=== PATIENT | male | born 1990 | race Caucasian/White ===

== ENCOUNTER 2017-05-19 16:46 | Emergency (ER) | payer OTHER ==
[~2017-05-19] VITALS: Ht 185.4 cm; Wt 77.1 kg
[~2017-05-19 16:46] MED LIST: ALBU90OI; ALBU90OI6 INH; AMOX500 PO; CIPR250 PO; CODACE30 PO; CYCL10 PO; HYDACE5 PO; HYDACE5325 PO; IBUP600 PO; IBUP800 PO; KETO10 PO; MUSCLE RELAXER; NAPR550 PO; OXYACE5T PO; OXYACE7.5T PO; PROM25 PO; RXNAPNA550 PO; RXOXYACE PO; TAMS.4ER PO; TRAM50 PO; [UNRECOGNIZED DRUG - REMARK]
[2017-05-19] MEDS ORDERED: Robaxin500 MG PO (17:20)
[2017-05-19] MEDS ORDERED: [UNRECOGNIZED DRUG - OTHER] (17:39)
[2017-12-04] MEDS ORDERED: Vibramycin100 MG PO (07:14)
[2017-12-04] MEDS ORDERED: Norco 5-325 Ta1 EACH PO (07:14)
== END 2017-05-19 17:42 | disposition home or self-care (01) ==
LOC: ER 16:46
DX: M54.5 Low back pain (principal); Z88.0 Allergy status to penicillin; J45.909 Unspecified asthma, uncomplicated; Z87.442 Personal history of urinary calculi
CPT/HCPCS: 96372; 99283; J1885

== ENCOUNTER 2017-05-25 10:47 | Emergency (ER) | payer OTHER ==
[~2017-05-25] VITALS: Ht 182.9 cm; Wt 78.0 kg
[~2017-05-25 10:47] MED LIST changes: +Robaxin500 MG PO; +[UNRECOGNIZED DRUG - OTHER]
[2017-05-25] MEDS ORDERED: CLON.5 PO (11:12)
[2017-05-25] MEDS ORDERED: CYCL10 PO (11:33)
[2017-12-04] MEDS ORDERED: Vibramycin100 MG PO (07:14)
[2017-12-04] MEDS ORDERED: Norco 5-325 Ta1 EACH PO (07:14)
== END 2017-05-25 11:40 | disposition home or self-care (01) ==
LOC: ER 10:47
DX: M54.6 Pain in thoracic spine (principal); Z88.0 Allergy status to penicillin; Z79.899 Other long term (current) drug therapy; J45.909 Unspecified asthma, uncomplicated; F17.290 Nicotine dependence, other tobacco product, uncomplicated
CPT/HCPCS: 99282

== ENCOUNTER → 2017-10-19 | Outpatient (CLI) | payer OTHER ==
[~2017-10-19] MED LIST changes: +CLON.5 PO
[2017-10-19 12:18] LABS: BASOPHILS ABSOLUTE AUTO 0.03 K/mm3 (0.00-0.23); BASOPHILS PERCENT AUTO 1 % (0-2); EOSINOPHILS ABSOLUTE AUTO 0.04 K/mm3 (0.00-0.68); EOSINOPHILS PERCENT AUTO 1 % (0-6); Hematocrit 45.3 % (37.0-53.0); Hemoglobin 16.2 g/dL (13.5-17.5); IMMATURE GRAN ABSOLUTE AUTO 0.01 K/mm3 (0.00-0.10); IMMATURE GRAN PERCENT AUTO 0 % (0-1); LYMPHOCYTES ABSOLUTE AUTO 2.09 K/mm3 (0.84-5.20); LYMPHOCYTES PERCENT AUTO 34 % (21-46); MONOCYTES ABSOLUTE AUTO 0.45 K/mm3 (0.16-1.47); MONOCYTES PERCENT AUTO 7 % (4-13); Mean Corpuscular HGB Conc 35.8 g/dL (31.5-36.5); Mean Corpuscular Volume 90 fL (80-100); Mean Platelet Volume 10.4 fL (9.1-12.4); NEUTROPHILS ABSOLUTE AUTO 3.58 K/mm3 (1.96-9.15); NEUTROPHILS PERCENT AUTO 58 % (41-73); Platelet Count 201 K/mm3 (150-400); RDW Coefficient Variation 11.9 % (11.7-14.2); RDW Standard Deviation 38.9 fL (35.1-46.3); Red Blood Cell Count 5.06 M/mm3 (4.30-5.90)
== END | disposition home or self-care (01) ==
LOC: LAB EV 12:12 → LAB SHORT 12:12
PROVIDERS: Physician Assistant
DX: R10.31 Right lower quadrant pain (principal)
CPT/HCPCS: 85025

== ENCOUNTER 2017-10-24 12:30 | Emergency (ER) | payer MEDICAID ==
[~2017-10-24] VITALS: Ht 182.9 cm; Wt 81.7 kg
[2017-10-24 13:51] LABS: BASOPHILS ABSOLUTE AUTO 0.03 K/mm3 (0.00-0.23); BASOPHILS PERCENT AUTO 1 % (0-2); EOSINOPHILS ABSOLUTE AUTO 0.08 K/mm3 (0.00-0.68); EOSINOPHILS PERCENT AUTO 2 % (0-6); Hematocrit 47.3 % (37.0-53.0); IMMATURE GRAN ABSOLUTE AUTO 0.01 K/mm3 (0.00-0.10); IMMATURE GRAN PERCENT AUTO 0 % (0-1); LYMPHOCYTES ABSOLUTE AUTO 2.31 K/mm3 (0.84-5.20); LYMPHOCYTES PERCENT AUTO 43 % (21-46); MONOCYTES ABSOLUTE AUTO 0.48 K/mm3 (0.16-1.47); MONOCYTES PERCENT AUTO 9 % (4-13); Mean Corpuscular HGB Conc 35.9 g/dL (31.5-36.5); Mean Corpuscular Volume 89 fL (80-100); Mean Platelet Volume 10.4 fL (9.1-12.4); NEUTROPHILS ABSOLUTE AUTO 2.46 K/mm3 (1.96-9.15); NEUTROPHILS PERCENT AUTO 46 % (41-73); Platelet Count 216 K/mm3 (150-400); RDW Coefficient Variation 11.8 % (11.7-14.2); RDW Standard Deviation 37.9 fL (35.1-46.3); Red Blood Cell Count 5.32 M/mm3 (4.30-5.90); White Blood Cell Count 5.37 K/mm3 (4.00-11.30)
[2017-10-24 14:06] LABS: Alanine Aminotransfer (ALT/SGP 26 U/L (12-78); Albumin, Blood 4.4 g/dL (3.4-5.0); Albumin/Globulin Ratio 1.5 (0.8-1.8); Alk Phos 87 U/L (50-136); Anion Gap 8 mmol/L (6-16); Aspartate Aminotrans (AST/SGOT 22 U/L (12-37); Bilirubin, Total 0.9 mg/dL (0.1-1.0); Blood Urea Nitrogen 9 mg/dL (8-24); Bun/Creatinine Ratio 8.2 (12.0-20.0); CO2, Blood 25 mmol/L (21-32); Calcium, Blood 9.3 mg/dL (8.5-10.1); Chloride, Blood 107 mmol/L (98-108); Globulin, Blood 2.9 g/dL (2.2-4.0); Glomerular Filtration Rate >60 (60-); Glucose, Blood 92 mg/dL (70-99); Potassium, Blood 4.2 mmol/L (3.5-5.5); Sodium, Blood 140 mmol/L (136-145); Total Protein, Blood 7.3 g/dL (6.4-8.2)
[2017-10-24 14:39] LABS: Source, Urine Clean Catch
[2017-10-24 14:47] LABS: Bilirubin, Urine Neg (Neg); Blood, Urine Neg (Neg); Glucose Qualitative, Urine Neg (Neg); Ketones, Urine Neg (Neg); Leukocyte Esterase, Urine Neg (Neg); Nitrite, Urine Neg (Neg); Protein, Urine Neg (Neg); Urobilinogen, Urine NORM (Normal)
[2017-10-24 14:58] LABS: Appearance, Urine Clear (Clear); Color, Urine Yellow (P-Yellow)
[2017-10-24] MEDS ORDERED: IBUP400 PO (16:10)
== END 2017-10-24 16:27 | disposition home or self-care (01) ==
LOC: ER 12:30
PROVIDERS: Emergency Medicine
DX: R10.84 Generalized abdominal pain (principal); F17.290 Nicotine dependence, other tobacco product, uncomplicated; Z88.0 Allergy status to penicillin; Z87.442 Personal history of urinary calculi
CPT/HCPCS: 36415; 76857; 80053; 81003; 82947; 83690; 85025; 96360; 99284-25; J7120

== ENCOUNTER 2017-12-06 09:29 | Emergency (ER) | payer OTHER ==
[~2017-12-06] VITALS: Ht 185.4 cm; Wt 79.4 kg
[~2017-12-06 09:29] MED LIST changes: +IBUP400 PO; +Norco 5-325 Ta1 EACH PO; +Vibramycin100 MG PO
[2017-12-06 11:01] LABS: BASOPHILS ABSOLUTE AUTO 0.04 K/mm3 (0.00-0.23); BASOPHILS PERCENT AUTO 1 % (0-2); EOSINOPHILS ABSOLUTE AUTO 0.09 K/mm3 (0.00-0.68); EOSINOPHILS PERCENT AUTO 1 % (0-6); Hemoglobin 16.2 g/dL (13.5-17.5); IMMATURE GRAN ABSOLUTE AUTO 0.01 K/mm3 (0.00-0.10); IMMATURE GRAN PERCENT AUTO 0 % (0-1); LYMPHOCYTES ABSOLUTE AUTO 2.36 K/mm3 (0.84-5.20); LYMPHOCYTES PERCENT AUTO 38 % (21-46); MONOCYTES ABSOLUTE AUTO 0.43 K/mm3 (0.16-1.47); MONOCYTES PERCENT AUTO 7 % (4-13); Mean Corpuscular Volume 89 fL (80-100); Mean Platelet Volume 10.7 fL (9.1-12.4); NEUTROPHILS ABSOLUTE AUTO 3.32 K/mm3 (1.96-9.15); NEUTROPHILS PERCENT AUTO 53 % (41-73); Platelet Count 211 K/mm3 (150-400); RDW Coefficient Variation 11.4 % (11.7-14.2); RDW Standard Deviation 36.2 fL (35.1-46.3); Red Blood Cell Count 5.07 M/mm3 (4.30-5.90); White Blood Cell Count 6.25 K/mm3 (4.00-11.30)
[2017-12-06 11:14] LABS: Source, Urine Clean Catch
[2017-12-06 11:18] LABS: Anion Gap 7 mmol/L (6-16); Blood Urea Nitrogen 16 mg/dL (8-24); Bun/Creatinine Ratio 11.3 (12.0-20.0); CO2, Blood 26 mmol/L (21-32); Calcium, Blood 9.3 mg/dL (8.5-10.1); Chloride, Blood 110 mmol/L (98-108); Creatinine, Blood 1.42 mg/dL (0.60-1.20); Glomerular Filtration Rate >60 (60-); Glucose, Blood 94 mg/dL (70-99); Sodium, Blood 143 mmol/L (136-145)
[2017-12-06 11:27] LABS: Bilirubin, Urine Neg (Neg); Blood, Urine Neg (Neg); Glucose Qualitative, Urine Neg (Neg); Ketones, Urine Neg (Neg); Leukocyte Esterase, Urine Neg (Neg); Nitrite, Urine Neg (Neg); Protein, Urine Neg (Neg); Specific Gravity, Urine 1.005 (1.003-1.022); Urobilinogen, Urine NORM (Normal)
[2017-12-06 11:43] LABS: Appearance, Urine Clear (Clear); Color, Urine Yellow (P-Yellow)
[2017-12-06] MEDS ORDERED: Cipro500 MG PO (12:11)
[2017-12-06] MEDS ORDERED: Norco 5-325 Ta1 EACH PO (12:11)
[2017-12-07 23:10] LABS: CHLAMYDIA TRACHOMATIS, NAA Negative (Negative); NEISSERIA GONORRHOEAE, NAA Negative (Negative)
== END 2017-12-06 12:31 | disposition home or self-care (01) ==
LOC: ER 09:29
PROVIDERS: Physician Assistant
DX: N45.1 Epididymitis (principal); N17.9 Acute kidney failure, unspecified; Z87.442 Personal history of urinary calculi; Z87.891 Personal history of nicotine dependence; Z79.891 Long term (current) use of opiate analgesic; Z79.899 Other long term (current) drug therapy; Z88.0 Allergy status to penicillin
CPT/HCPCS: 36415; 80048; 81003; 85025; 87491; 87591; 96361; 96374; 99283-25; J3010; J7030

== ENCOUNTER 2017-12-22 03:42 | Emergency (ER) | payer OTHER ==
[~2017-12-22] VITALS: Ht 210.8 cm; Wt 81.7 kg
[~2017-12-22 03:42] MED LIST changes: +Cipro500 MG PO
[2017-12-22] MEDS ORDERED: Silvadene20 GM TOP (05:48)
[2017-12-22] MEDS ORDERED: Norco 10-325 T1 EACH PO (05:48)
== END 2017-12-22 06:15 | disposition home or self-care (01) ==
LOC: ER 03:42
DX: T21.01XA Burn of unspecified degree of chest wall, initial encounter (principal); T22.032A Burn of unspecified degree of left upper arm, initial encounter; T22.031A Burn of unspecified degree of right upper arm, initial encounter; Z23 Encounter for immunization; X11.8XXA Contact with other hot tap-water, initial encounter; Z88.0 Allergy status to penicillin; Z87.891 Personal history of nicotine dependence
CPT/HCPCS: 90714; J1170; J2405

== ENCOUNTER 2020-09-06 07:36 | Day surgery (SDC) | payer OTHER ==
[~2020-09-06] VITALS: Ht 185.4 cm; Wt 91.1 kg
[~2020-09-06 07:36] MED LIST changes: +BIOTIN1 MG PO; +DOXY100 PO; +Norco 10-325 T1 EACH PO; +SULTRIDS PO; +Silvadene20 GM TOP
[2020-09-06] MEDS ORDERED: KRATOM PO (08:24)
--- NOTE | 2020-09-06 08:42 | NUR ---
Ambulatory in Day Surgery History, Chart, Medications and Allergies reviewed before start of procedure. Lungs clear T/O to Auscultation. Patient confirms NPO status and agrees with scheduled surgery. Pre-Op teaching done. Pt verbalizes understanding.
--- NOTE | 2020-09-06 14:10 | NUR ---
Patient up to Ambulate independently. Gait steady. Discharge instructions reviewed with patient. Patient verbalizes understanding. Copy given to patient to take home. Discharged via wheelchair to private car for ride home.
== END 2020-09-06 22:39 | disposition home or self-care (01) ==
LOC: ORSCMMR 07:36 → ORD 09:15 → ORSCMMR 22:39
PROVIDERS: Surgery
PROC: 0HB8XZZ Excision of Buttock Skin, External Approach (ICD-10-PCS; principal; 2020-09-06 09:15)
PROC: 0HX8XZZ Transfer Buttock Skin, External Approach (ICD-10-PCS; principal; 2020-09-06 09:15)
DX: L05.01 Pilonidal cyst with abscess (principal); F17.210 Nicotine dependence, cigarettes, uncomplicated
CPT/HCPCS: 82947; 88304; A9270; J0171; J2250; J2704; J2765; J3010; J7120

== ENCOUNTER 2020-09-11 10:13 | Emergency (ER) | payer OTHER ==
[~2020-09-11] VITALS: Ht 185.4 cm; Wt 90.7 kg
[~2020-09-11 10:13] MED LIST changes: +KRATOM PO
[2020-09-11] MEDS ORDERED: HYDROCODONE-AC1 EA12 PO (10:36)
[2020-09-11] MEDS ORDERED: Cleocin HCl300 MG PO (11:01)
== END 2020-09-11 11:17 | disposition home or self-care (01) ==
LOC: ER 10:13
DX: Z48.01 Encounter for change or removal of surgical wound dressing (principal); L05.91 Pilonidal cyst without abscess; Z88.0 Allergy status to penicillin; Z87.891 Personal history of nicotine dependence; Z87.442 Personal history of urinary calculi
CPT/HCPCS: 99283; A9270

== ENCOUNTER 2020-11-05 06:39 | Day surgery (SDC) | payer OTHER ==
[~2020-11-05] VITALS: Ht 185.4 cm; Wt 91.8 kg
[~2020-11-05 06:39] MED LIST changes: +Cleocin HCl300 MG PO; +HYDROCODONE-AC1 EA12 PO
--- NOTE | 2020-11-05 07:50 | NUR ---
Ambulatory in Day SurgeryBair Paws warming gown applied. History, Chart, Medications and Allergies reviewed before start of procedure.History, Chart, Medications and Allergies reviewed before start of procedure.Lungs clear T/O to Auscultation. Patient confirms NPO status and agrees with scheduled surgery. Pre-Op teaching done. Pt verbalizes understanding. Patient States Post-Procedure ride home has been arranged.
--- NOTE | 2020-11-05 09:10 | NUR ---
11/05/20 0910 Umberto Brenner NO SEDATION, GIORGIO RN AT HEAD OF BED TALKING WITH PT THOUGHOUT PROCEDURE-PT TOLERATED WELL
--- NOTE | 2020-11-05 10:24 | NUR ---
Discharge instructions reviewed with patient. Patient verbalizes understanding. Copy given to patient to take home. Discharged via wheelchair to private car for ride home WITH [employer], ALTHOUGH PT WITHOUT SEDATION FOR PROCEDURE.
== END 2020-11-05 22:41 | disposition home or self-care (01) ==
LOC: ORSCMMR 06:39 → ORD 08:30 → ORSCMMR 22:41
PROVIDERS: Surgery
PROC: 0JB90ZZ Excision of Buttock Subcutaneous Tissue and Fascia, Open Approach (ICD-10-PCS; principal; 2020-11-05 08:30)
DX: L72.9 Follicular cyst of the skin and subcutaneous tissue, unspecified (principal); F41.9 Anxiety disorder, unspecified; J45.909 Unspecified asthma, uncomplicated; Z87.891 Personal history of nicotine dependence
CPT/HCPCS: 88304; A9270; J1100; J1885; J2250; J2405; J2704; J3010; J7120

== ENCOUNTER → 2023-12-08 | Outpatient (CLI) | payer BC ==
[2023-12-08 08:09] LABS: BASOPHILS ABSOLUTE AUTO 0.03 K/mm3 (0.00-0.23); BASOPHILS PERCENT AUTO 1 % (0-2); EOSINOPHILS ABSOLUTE AUTO 0.08 K/mm3 (0.00-0.68); EOSINOPHILS PERCENT AUTO 1 % (0-6); Hematocrit 43.3 % (37.0-53.0); Hemoglobin 15.3 g/dL (13.5-17.5); IMMATURE GRAN ABSOLUTE AUTO 0.03 K/mm3 (0.00-0.10); IMMATURE GRAN PERCENT AUTO 1 % (0-1); LYMPHOCYTES ABSOLUTE AUTO 2.01 K/mm3 (0.84-5.20); LYMPHOCYTES PERCENT AUTO 32 % (21-46); MONOCYTES ABSOLUTE AUTO 0.52 K/mm3 (0.16-1.47); MONOCYTES PERCENT AUTO 8 % (4-13); Mean Corpuscular HGB 31.2 pg (26.0-34.0); Mean Corpuscular HGB Conc 35.3 g/dL (31.5-36.5); Mean Corpuscular Volume 88 fL (80-100); Mean Platelet Volume 10.6 fL (9.1-12.4); NEUTROPHILS ABSOLUTE AUTO 3.69 K/mm3 (1.96-9.15); NEUTROPHILS PERCENT AUTO 58 % (41-73); Platelet Count 213 K/mm3 (150-400); RDW Coefficient Variation 12.6 % (11.7-14.2); RDW Standard Deviation 40.4 fL (35.1-46.3); White Blood Cell Count 6.36 K/mm3 (4.00-11.30)
[2023-12-08 08:20] LABS: Albumin, Blood 4.1 g/dL (3.4-5.0); Albumin/Globulin Ratio 1.3 (0.8-1.8); Bilirubin, Total 0.6 mg/dL (0.1-1.0); Bun/Creatinine Ratio 20.8 (12.0-20.0); Calcium, Blood 9.1 mg/dL (8.5-10.1); Creatinine, Blood 1.01 mg/dL (0.60-1.20); Globulin, Blood 3.2 g/dL (2.2-4.0); Total Protein, Blood 7.3 g/dL (6.4-8.2)
== END ==
LOC: LAB 08:05 → LAB SHORT 08:05
PROVIDERS: Physician Assistant
DX: M79.10 Myalgia, unspecified site (principal)
CPT/HCPCS: 80053; 82550; 85025; 85651